=== PATIENT | male | born 1980 | race Caucasian/White ===

== ENCOUNTER 2016-08-20 14:26 | Emergency (ER) | payer BC ==
[2016-08-20 15:14] LABS: Hematocrit 43.8 % (42.0-52.0); Hemoglobin 14.5 gm/dL (13.5-18.0); Mean Cell Volume 90.3 fl (78-100); Mean Corpuscular Hemoglobin 29.9 pg (27-31); Mean Corpuscular Hgb Conc 33.1 g/dl (32-36); Mean Platelet Volume 10.2 fl (6.0-9.5); Neutrophil # 11.7 K/mm3 (1.3-6.0); Neutrophil % 78.8 % (42-75.0); Platelet Count 275 K/mm3 (150-450); Red Blood Count 4.85 M/mm3 (4.7-6.0); Red Cell Distribution Width 12.2 % (11.5-14.0); White Blood Count 14.9 K/mm3 (4.0-10.5)
[2016-08-20 15:26] LABS: Prothrombin Time (Patient) 10.9 Seconds (9.4-11.4)
[2016-08-20 15:29] LABS: Albumin * 3.7 gm/dl (3.4-5.0); Anion Gap 14.9 mmol/L (6.8-13.8); BUN/Creatinine Ratio 13.9 (9.0-21.6); Bilirubin, Total 0.3 mg/dL (0.0-1.1); Ca. Corrected For Albumin 8.9 mg/dL (8.4-10.2); Carbon Dioxide 26.1 mmol/L (24-32.6); Total Protein 7.6 gm/dL (6.2-8.2)
[2016-08-20 15:33] LABS: INR 1.05 INR (0.90-1.10)
--- OUTSIDE RECORDS SUMMARY | 2016-08-20 15:40 | XMS REPORT | Continuity of Care Document ---
:1980 Author Organization [facility] ([facility]) Address [address] [place] [address] Phone [phone] Care Team Providers Name Role Phone Cassie Sims Primary Care Provider [phone] Source Comments This disclosure is being made pursuant to the Care Everywhere program, applicable federal and state laws, and may not contain all informaitonavailable regarding this patient.[facility] ([facility]) Active Allergies and Adverse Reactions No Known Allergies Current Medications No known medications Active Problems Problem Noted Date Renal mass, right 08/07/2016 Most Recent Encounters Date Type Specialty Providers Description 08/22/2016 Hospital Encounter Radiology Seamus Robles Dx: Angiomyolipoma of MD Mary kidney 08/17/2016 Office Visit Radiology Seamus Robles Dx: Renal MD Mary angiomyolipoma (Primary Dx) 08/11/2016 Orders/Notes Urology Georges Sanchez MD Dx: Angiomyolipoma of kidney (Primary Dx) 08/10/2016 Telephone Radiology Laure Shook, Chief Comp: RN Appointment Info 08/10/2016 Orders/Notes Radiology Laure Shook, Dx: Angiomyolipoma of RN right kidney (Primary Dx) 08/08/2016 Orders/Notes Cancer Center Georges Sanchez MD 08/07/2016 Office Visit Urology Oncology Georges Sanchez MD Dx: Renal mass (Primary Dx) 08/02/2016 Hospital Encounter Radiology Mya Richards MD Dx: Renal mass 07/31/2016 Telephone Urology Oncology Georges Sanchez MD 07/07/2016 Lab Requisition Pathology [facility] Services, Dx: Neoplasm of [facility] uncertain behavior of skin Social History Tobacco Use Types Packs/Day Years Used Date Current Some Day Smoker Cigarettes 1 20 Smokeless Tobacco: Never Used Alcohol Use Drinks/Week oz/Week Comments Yes 0 Standard drinks or equivalent 0.0 rare Last Filed Vital Signs Vital Sign Reading Time Taken Blood Pressure 120/72 08/17/2016 1:29 PM CDT Pulse 74 08/17/2016 1:29 PM CDT Temperature 36.8 C (98.2 F) 08/07/2016 3:27 PM CDT Respiratory Rate 18 08/17/2016 1:29 PM CDT Height 1.76 m (5' 9.29") 08/07/2016 3:29 PM CDT Weight 89.8 kg (197 lb 15.6 oz) 08/07/2016 3:27 PM CDT Body Mass Index 28.99 08/07/2016 3:27 PM CDT Oxygen Saturation 98% 08/07/2016 3:29 PM CDT Plan of Care Date Type Specialty Providers Description 08/22/2016 Surgery Radiology Seamus Robles MD Canceled Ir Ct Guided [address] Ren[place] [address] [phone] (Fax) 08/22/2016 Surgery Radiology Seamus Robles MD Ir Foster Embolization ([id number]) [address] [place] [address] [phone] (Fax) Health Maintenance Due Date Last Done Comments Hepatitis B Vaccine (1 of 3 - Primary Series) 1980 Tdap Vaccine 12/07/1991 Lipid Disorder Screening 1998 MMR Vaccine 1998 Td Vaccine 1998 Varicella Vaccine (1 of 2 - Adult - No Evidence of 1998 Immunity) Pneumococcal Vaccine (1 of 1 - PPSV23) 12/07/1999 Influenza Vaccine: Seasonal Completed Results from Last 3 Months EXTERNAL PROTHROMBIN TIME (PT)/INR (08/11/2016) Component Value Range Ext INR 0.9 0.9-1.1 EXTERNAL CREATININE (08/11/2016) Component Value Range Ext Creatinine 0.77 0.5-1.2 MG/DL Ext Calculated GFR >60 EXTERNAL CBC (08/11/2016) Component Value Range Ext WBC Count 5.5 4.8-10.8 K/MM3 Ext RBC Count 5.31 4.6-6.0 M/MM3 Ext Hemoglobin 16.3 14-18 G/DL Ext Hematocrit 47.4 42-52 % Ext MCV (Mean Corpuscular Volume) 89.3 80-94 Ext MCH-Mean Corpuscular Hemoglobin 30.7 25-38 Ext MCHC-Mean Corpuscular Hgb Concentration 34.4 31-37 Ext Platelet Count 193 130-400 K/MM3 Ext RDW-Red Cell Distribution Width 42.9 1-[address]-STORE& INTERPRET (08/02/2016 12:52 PM) Impressions Impression: 1. 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 The tumor also causes displacement of the pancreas to theleft side. Inferior displacement of the transverse colon by the large right renal mass. 2. Several small hypodense lesions involving the left kidney. Left renal lesions may represent small cysts versus angiomyolipomas. Narrative Outside film interpretation requested. Patient name: Abraham Frances. Exam was performed at 1136 hours on 07/28/2016 at [facility]. 549 images are provided and interpreted on the in-house PACS. Procedure: CT exam of the abdomen and pelvis with IV contrast. Technique: Exam is performed with intravenous contrast and consists of abdomen and pelvis Clinical Indication: Renal mass. Comparison: None. Findings: Lower chest: Minimal linear atelectasis at the lung bases. No pleural effusions. Liver: Normal Bile ducts: Not dilated. Gallbladder: Normal. Pancreas: The pancreas is displaced across the midline to the left side by the large retroperitoneal right renal angiomyolipoma. Grossly normal appearance of the pancreas. Spleen: Normal Adrenal glands: Normal Kidneys: Large right renal angiomyolipoma arising from the mid upper kidney and extending across the midline to the left side. Right renal angiomyolipoma causes displacement of the pancreas, inferior vena cava and aortato the left side. Right renal angiomyolipoma measures approximately 23 cm in transverse diameter x 21.5 cm in craniocaudal diameter x 13.5 cm AP diameter. Small left renal hypodense lesion measuring 6 mm (6-85) and left medial renal hypodense lesion measuring 9.6 mm (6-50). Ureters: Normal Bladder: Normal Aorta: There is relative flattening of the IVC by the large right renal angiomyolipoma.. Mild displacement of the abdominal aorta to the left side. Retroperitoneum: No lymphadenopathy. Peritoneum: No ascites. Mesentery: Multiple small lymph nodes involving the small bowel mesentery. Stomach: There is displacement of the stomach to the left side by the large right renal lesion. Duodenum is displaced inferiorly to the left by the large renal mass lesion. Small bowel: Displacement of the small bowel to theleft side. No gross abnormalities. Colon: Displacement of the transverse colon inferiorly by the large retroperitoneal mass. Grossly normal appearance of the colon. Appendix: Normal. Extraperitoneal pelvis: No lymphadenopathy. Prostate: Not enlarged. Abdominal wall: Normal Bones: No acute fracture or destructive bone lesion. Procedure Note Alon, Incoming Imaging Results - SunAug 04, 2016 5:05 PM CDT Outside film interpretation requested. Patient name: Abraham Frances. Exam was performed at 1136 hours on 07/28/2016 at [facility]. 549 images are provided and interpreted on the in-house PACS. Procedure: CT exam of the abdomen and pelvis with IV contrast. Technique: Exam is performed with intravenous contrast and consists of abdomen and pelvis Clinical Indication: Renal mass. Comparison: None. Findings: Lower chest: Minimal linear atelectasis at the lung bases. No pleural effusions. Liver: Normal Bile ducts: Not dilated. Gallbladder: Normal. Pancreas: The pancreas is displaced across the midline to the left side by the large retroperitoneal right renal angiomyolipoma. Grossly normal appearance of the pancreas. Spleen: Normal Adrenal glands: Normal Kidneys: Large right renal angiomyolipoma arising from the mid upper kidney and extending across the midline to the left side. Right renal angiomyolipoma causes displacement of the pancreas, inferior vena cava and aorta to the left side. Right renal angiomyolipoma measures approximately 23 cm in transverse diameter x 21.5 cm in craniocaudal diameter x 13.5 cm AP diameter. Small left renal hypodense lesion measuring 6 mm (6-85) and left medial renal hypodense lesion measuring 9.6 mm (6-50). Ureters: Normal Bladder: Normal Aorta: There is relative flattening of the IVC by the large right renal angiomyolipoma.. Mild displacement of the abdominal aorta to the left side. Retroperitoneum: No lymphadenopathy. Peritoneum: No ascites. Mesentery: Multiple small lymph nodes involving the small bowel mesentery. Stomach: There is displacement of the stomach to the left side by the large right renal lesion. Duodenum is displaced inferiorly to the left by the large renal mass lesion. Small bowel: Displacement of the small bowel to the left side. No gross abnormalities. Colon: Displacement of the transverse colon inferiorly by the large retroperitoneal mass. Grossly normal appearance of the colon. Appendix: Normal. Extraperitoneal pelvis: No lymphadenopathy. Prostate: Not enlarged. Abdominal wall: Normal Bones: No acute fracture or destructive bone lesion. IMPRESSION Impression: 1. 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 The tumor also causes displacement of the pancreas to the left side. Inferior displacement of the transverse colon by the large right renal mass. 2. Several small hypodense lesions involving the left kidney. Left renal lesions may represent small cysts versus angiomyolipomas. DERMATOPATHOLOGY EXAM (07/05/2016 12:00 PM) Component Value Range Case Report Surgical Pathology Case: [id number] Authorizing Provider:Lab Services, [facility] Collected: 07/05/2016 12:00 PM Pathologist: Nas Khoury MD Received:07/07/2016 12:00 PM Specimen:Skin, other, specify, R Lower cutaneous lip/L cheek Diagnosis Skin, left cheek/lower cutaneous lip, biopsies (x5): Angiofibromas (x5). Clinical Information Tissue source/site: Skin snip L cheek, lower cutaneous lip. 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 Clinical differential diagnosis: Tuberous sclerosis. Gross Description A.Received in formalin, in a container labeled Abraham Musa, date of , and "R Lower cutaneous lip/L cheek", are five irregular, hutton skin shave biopsies ranging from 0.1-0.3 cm in greates t dimension.The resection margins are inked blue and the specimens are submitted in toto in A1. ATC/tkr Microscopic Description Sections show five dome-shaped skin shaves, each demonstrating thickened collagen bundles associated with a proliferation of cytologically bland-appearing stellate cells and increased numbers of dilated small blood vessels. Margins are involved. Performed by:Katherine Patel MD, R4/rls I have personally reviewed this case and edited the report as necessary. Nas Khoury MD Specimen Skin - Skin, other, specify
[2016-08-20 16:09] VITALS: BP 123/73
[2016-08-20] MEDS ORDERED: NORMAL SALINE 1,000 ML IV ONE (16:15)
--- NOTE | 2016-08-20 16:26 | ERNOTE ---
Abdominal HPI - General Chief Complaint: Abdominal Pain Time Seen by Provider: 08/20/16 14:35 Source: patient, family Exam Limitations: no limitations - Immun/Allergies/Home Medications Allergies/Adverse Reactions: Allergies No Known Allergies Allergy (Verified 08/20/16 15:58) Home Medications: HOME MEDICATIONS NK [No Home Medication] 08/20/16 [Last Taken Unknown] - History of Present Illness Timing: constant Quality: severe Activities at Onset: none Associated Symptoms: Present: other - dizzy Prior Abdominal Problems: Present: other - angiomyeloma and tubular sclerosis Review of Systems - Review of Systems Constitutional: Present: weakness EYE: Present: no symptoms reported ENT: Present: no symptoms reported Respiratory: Present: no symptoms reported Cardiology: Present: no symptoms reported Gastrointestinal/Abdominal: Present: no symptoms reported Genitourinary: Present: other - right flank pain Musculoskeletal: Present: no symptoms reported Skin: Present: no symptoms reported Neurological: Present: no symptoms reported Endocrine: Present: no symptoms reported Hematologic/Lymphatic: Present: no symptoms reported Psych: Present: no symptoms reported - Patient's Past Medical History Patient History - Medical: Other - tubular sclerosis, angiomyeloma Patient History - Cardiac/Respiratory: No pertinent hx Patient History - Cancer: Kidney - Social History Living Situations: spouse Psych History: No pertinent hx Physical Exam - Physical Exam General Appearance: Present: wd/wn, alert, severe distress Eye Exam: Normal inspection: bilateral, PERRL: bilateral Ears, Nose, Throat: Present: normal ENT inspection, H, normal pharynx Neck: Present: normal inspection, nontender Respiratory: Present: no respiratory distress, normal breath sounds, no accessory muscle use, chest nontender, lungs clear Cardiovascular/Chest: Present: regular rate, rhythm, no murmur, normal peripheral pulses Gastrointestinal/Abdominal: Present: normal bowel sounds, nondistended, tenderness, guarding Rectal Exam: Present: deferred Back Exam: Present: normal inspection, normal range of motion Extremity Exam: Present: normal inspection, non-tender, no edema, normal range of motion Neurological Exam: Present: alert, oriented, normal mood/affect Skin Exam: Present: normal color, warm/dry Lymphatic Exam: Present: no adenopathy ED Progress - Results and Orders Patient's Lab Results:: I have reviewed the patient's lab results. - Vital Signs Patient's Vital Signs:: I have reviewed the patient's vital signs. Vital Signs: Vital Signs 08/20/16 14:30 Temperature 35.5 C L Pulse Rate 73 Respiratory 16 Rate Blood Pressure 81/60 O2 Sat by Pulse 98 Oximetry - CT/Ultrasound CT/Ultrasound Narrative: CT of the abdomen and pelvis with IV contrast was reviewed with radiology. Patient appears to be bleeding into the capsule of the right kidney likely secondary to his angiomyolipoma and has tubular sclerosis. - Progress/Reassessment Chief Complaint: Abdominal Pain Progress:: Improved Plan - Plan Plan: Patient came in initially hypotensive and presyncopal. With a blood pressure of 80/60 was given 1 L of normal saline. Patient responded adequately to the 1 L saline however a second liter of saline will be started for the helicopter ride to the [facility]. At this point all the bleeding so appears to be contained within the capsule of the right kidney, however if the decides to rupture patient is at high risk to lose considerable amount of blood in the retroperitoneal space. Patient is in critical condition and he will be taken by air transport to the [facility] for immediate either embolization or nephrectomy depending on presentation at that time. Departure - Departure Clinical Impression: Angiomyolipoma of right kidney Disposition: [facility] Condition: Critical Referrals: Cassie Sims DO [Primary Care Provider] - - Critical Care Total Time (mins): 40 Critical Care: Patient required both aggressive IV stabilization for his blood pressure and stat CT with immediate transfer to [facility] to the interventional radiology clinic and/or urology.
== END 2016-08-20 17:45 | disposition short-term general hospital (02) ==
LOC: ER 14:26
DX: D17.71 Benign lipomatous neoplasm of kidney (principal)